=== PATIENT | male | born 1955 | race Caucasian/White ===

== ENCOUNTER 2018-04-03 15:03 | Emergency (ER) | payer OTHER ==
[~2018-04-03] VITALS: Ht 182.9 cm; Wt 93.9 kg
[2018-04-03 15:09] VITALS: BP 137/93
[2018-04-03] MEDS ORDERED: CYCLOBENZAPRINE 10 MG TABLET ONE (15:38)
[2018-04-03] MEDS ORDERED: HYDROCODONE/APAP 5/325MG 1 EACH TABLET ONE (15:38)
[2018-04-03] MEDS ORDERED: IBUPROFEN 600 MG TABLET PO ONE ×2 (15:39→16:00)
[2018-04-03] MEDS ORDERED: CYCLOBENZAPRINE 10 MG TABLET PO ONE (16:00)
[2018-04-03] MEDS ORDERED: HYDROCODONE/APAP 5/325MG 1 EACH TABLET PO ONE (16:00)
== END 2018-04-03 15:52 | disposition home or self-care (01) ==
LOC: ER 15:03
DX: M54.12 Radiculopathy, cervical region (principal); I10 Essential (primary) hypertension; Z90.49 Acquired absence of other specified parts of digestive tract